=== PATIENT | female | born 1965 | race Caucasian/White ===

== ENCOUNTER 2021-07-03 14:20 | Inpatient (IN) | payer BC ==
[2021-07-03 16:11] LABS: Basophils % 0.4 % (0-1.3); Hematocrit 38.6 % (36.0-45.0); Lymphocytes % 10.5 % (15.3-44.8); MPV 9.3 fL (7.6-11.3); RBC Red Blood Cell Count 4.43 M/uL (3.86-4.86)
[2021-07-03] MEDS ORDERED: MORPHINE 4 MG/ML SYR ONE ×2 (16:11→18:04)
[2021-07-03] MEDS ORDERED: ONDANSETRON 4 MG/2 ML VIAL ONE ×2 (16:11→18:05)
[2021-07-03] MEDS ORDERED: NA CHLORIDE 0.9% 1,000 ML ONE ×2 (16:11→18:05)
[2021-07-03 16:17] LABS: ALT/SGPT 30 U/L (12-78); AST/SGOT 21 U/L (15-37); Alkaline Phosphatase 90 U/L (45-117); BUN Blood Urea Nitrogen 18 mg/dL (7-18); Bicarbonate 23 mmol/L (21-32); Bilirubin Direct 0.1 mg/dL (0-0.2); Bilirubin Total 0.4 mg/dL (0.2-1.0); Glucose Level 115 mg/dL (74-106); Magnesium 1.8 mg/dL (1.8-2.4); NT PRO-BNP 234 pg/mL (<125); Potassium 3.6 mmol/L (3.5-5.1); Protein, Total 7.9 g/dL (6.4-8.2); Sodium Level 139 mmol/L (136-145); Troponin (Emerg Dept Use Only) < 0.02 ng/mL (0.0-0.045)
[2021-07-03 16:19] LABS: Lipase > 30000 U/L (73-393)
[2021-07-03] MEDS ORDERED: FAMOTIDINE 20 MG/2 ML VIAL IV ONE (16:24)
--- NOTE | 2021-07-03 16:30 | RAD REPORT ---
EXAM DESCRIPTION: CT - Angio Aorta For Dissection - 07/03/2021 4:17 pm CLINICAL HISTORY: Chest pain radiating to the back. CHEST PAIN COMPARISON: No comparisons TECHNIQUE: CT angiography of the aorta was performed with MIPs. All CT scans are performed using dose optimization technique as appropriate and may include automated exposure control or mA/KV adjustment according to patient size. FINDINGS: A left aortic arch is present with normal branching pattern of the great vessels.No acute aortic finding is seen such as aneurysm, penetrating ulcer or dissection. The celiac axis, SMA, SHANNAN and renal arteries are patent. No evidence of pulmonary embolism. The lungs are clear. Moderate axial hiatal hernia. The liver demonstrates no focal mass or biliary dilatation.The spleen, adrenal glands and kidneys are within normal limits for arterial phase imaging.Mild inflammation is seen inferior to the tail of th e pancreas. No bowel obstruction, free fluid or abscess.Normal appendix.No pathologic enlarged lymphadenopathy id entified. No fracture or worrisome bone lesion seen.Old L1 anterior wedge compression deformity. IMPRESSION: No acute aortic finding is demonstrated. Mild inflammation inferior to the tail the pancreas is suspicious for acute pancreatitis. Recommend c orrelation with amylase and lipase levels.
--- NOTE | 2021-07-03 16:31 | RAD REPORT ---
EXAM DESCRIPTION: RAD - Chest Single View - 07/03/2021 4:19 pm CLINICAL HISTORY: CHEST PAIN Chest pain. COMPARISON: Angio Aorta For Dissection dated 07/03/2021 FINDINGS: Portable technique limits examination quality. The lungs are grossly clear. The heart is normal in size. No displaced fractures. IMPRESSION: No acute intrathoracic process suspected.
--- NOTE | 2021-07-03 17:10 | RAD REPORT ---
EXAM DESCRIPTION: US - Abdomen Exam Limited - 07/03/2021 4:59 pm CLINICAL HISTORY: EPIGASTRIC PAIN COMPARISON: Abdomen Exam Complete dated 11/10/2017 FINDINGS: The gallbladder demonstrates no gallstones. No pericholecystic fluid or gallbladder wall t hickening. The common bile duct is normal measuring 2 mm. The liver demonstrates no findings of intrahepatic biliary dilatation. IMPRESSION: Unremarkable examination.
--- NOTE | 2021-07-03 18:03 | ER ---
Nurse's Notes [facility] Name: Deisy Ruiz Age: 56 yrs Sex: Female : 1965 Arrival Date: 07/03/2021 Time: 14:22 Bed 25 Private MD: Diagnosis: Acute pancreatitis Presentation: 07/03 14:42 Chief complaint: Patient states: was outside working and all of a sudden had bad abd iw pain radiating to her back and up into her chest , started vomiting. Coronavirus screen: vomiting. Ebola Screen: Patient negative for fever greater than or equal to 101.5 degrees Fahrenheit, and additional compatible Ebola Virus Disease symptoms Patient denies exposure to infectious person. Patient denies travel to an Ebola-affected area in the 21 days before illness onset. No symptoms or risks identified at this time. Initial Sepsis Screen: Does the patient meet any 2 criteria? Does the patient have a suspected source of infection? No. Patient's initial sepsis screen is negative. Risk Assessment: Do you want to hurt yourself or someone else? Patient reports no desire to harm self or others. Onset of symptoms was July 03, 2021. 14:42 Method Of Arrival: Ambulatory iw 14:42 Acuity: KIOL 2 iw Historical: - Allergies: 14:43 NKA; iw - Home Meds: 14:43 citalopram 10 mg tab 1 tab once daily [Active]; iw - PMHx: 14:43 Anxiety; iw - PSHx: 14:43 None; iw - Immunization history:: Client reports receiving the 2nd dose of the Covid vaccine. - Social history:: Smoking status: Patient denies any tobacco usage or history of. Assessment: 15:26 Pain: Pain radiates to pelvis. Pain: Pain began 2-3 days ago. Cardiovascular: No ch5 deficits noted. 15:27 : Reports burning with urination, pain in Pelvis when moved. ch5 17:10 Reassessment: Patient states feeling better. Patient states symptoms have improved. ch5 Vital Signs: 14:42 BP 139 / 78; Pulse 56; Resp 16; Temp 96.7; Pulse Ox 100% on R/A; Weight 77.11 kg; iw Height 5 ft. 8 in. (172.72 cm); Pain 8/10; 15:29 BP 102 / 34; Pulse 79; Resp 18; Pulse Ox 92% on 3 lpm NC; ch5 17:10 BP 144 / 71; Pulse 54; Resp 18; Pulse Ox 100% on R/A; Pain 3/10; ch5 14:42 Body Mass Index 25.85 (77.11 kg, 172.72 cm) iw ED Course: 14:22 Patient arrived in ED. ds1 14:43 Triage completed. iw 14:44 Arm band placed on. iw 15:07 Erich Cross NP is PHCP. pm1 15:07 Sherman Andres MD is Attending Physician. pm1 15:25 Jamir Cavanaugh, BRIDGER is Primary Nurse. ch5 15:28 No apparent distress. ch5 15:28 No provider procedures requiring assistance completed. ch5 15:30 Patient has correct armband on for positive identification. Placed in gown. Bed in low ch5 position. Side rails up X2. 15:30 proof carrier on. Pulse ox on. NIBP on. Notified Nurse Practitioner and/or Physician ch5 Occupational Medicine Physician of EKG performed Labs sent. 15:30 Inserted saline lock: 20 gauge in right in left antecubital area, using aseptic ch5 technique. 15:30 Patient maintains SpO2 saturation greater than 95% on room air. Patient maintains SpO2 ch5 saturation greater than 95% on room air. 15:30 EKG done. ch5 15:52 CT Aorta for Dissection Sent. ld1 16:17 CT Aorta for Dissection In Process Unspecified. EDMS 16:19 XRAY Chest (1 view) In Process Unspecified. EDMS 16:36 Basic Metabolic Panel Sent. ch5 16:36 CBC with Diff Sent. ch5 16:36 LFT's Sent. ch5 16:36 Magnesium Sent. ch5 16:36 NT PRO-BNP Sent. ch5 16:36 Troponin (emerg Dept Use Only) Sent. ch5 16:37 Lipase Sent. ch5 16:59 US Abdomen Limited In Process Unspecified. EDMS 18:02 Francisco Veliz PA is Hospitalizing Provider. pm1 22:16 COVID-19 : Document "Date of Symptom Onset" if Symptomatic. Sent. ld1 Administered Medications: 15:59 Drug: Zofran (Ondansetron) 4 mg Route: IVP; Site: left antecubital; ch5 16:37 Follow up: Response: Vomiting decreased ch5 16:20 Drug: NS 0.9% 1000 ml Route: IV; Rate: 1000 ml; Site: left antecubital; ch5 18:43 Follow up: IV Status: Completed infusion ch5 16:20 Drug: Pepcid (famotidine) 20 mg Route: IVP; Site: left antecubital; ch5 16:37 Follow up: Response: Nausea is decreased ch5 16:21 Drug: morphine 4 mg Route: IVP; Site: left antecubital; ch5 16:37 Follow up: Response: Pain is decreased ch5 17:46 Drug: morphine 4 mg Route: IVP; Site: left antecubital; ch5 19:12 Follow up: Response: Nausea is decreased ch5 19:12 Follow up: Response: Marked relief of symptoms ch5 17:46 Drug: Zofran (Ondansetron) 4 mg Route: IVP; Site: left antecubital; ch5 22:16 Follow up: Response: No adverse reaction ld1 20:00 Drug: NS 0.9% 1000 ml Route: IV; Rate: 125 ml/hr; Site: left antecubital; ld1 22:17 Follow up: Response: No adverse reaction; IV Status: Completed infusion; IV Intake: ld1 1000ml Intake: 22:17 IV: 1000ml; Total: 1000ml. ld1 Outcome: 18:02 Decision to Hospitalize by Provider. pm1 07/04 09:29 Patient left the ED. eb Signatures: Dispatcher [employer] EDMI Sharon Nelson ds1 Zuri Saunders RN RN iw Erich Cross NP MINE BOSS pm1 Sarita Escudero Tonya Singh RN RN ld1 Jamir Cavanaugh RN RN ch5 Corrections: (The following items were deleted from the chart) 07/03 14:44 14:42 BP 175 / 140; Pulse 56bpm; Resp 16bpm; Pulse Ox 100% RA; Temp 96.7F; 77.11 kg; iw Height 5 ft. 8 in.; BMI: 25.8; Pain 8/10; iw 14:45 14:42 Pulse 56bpm; Resp 16bpm; Pulse Ox 100% RA; Temp 96.7F; 77.11 kg; Height 5 ft. 8 iw in.; BMI: 25.8; Pain 8/10; iw 15:59 15:28 Inserted saline lock: 20 gauge in right antecubital area, using aseptic ch5 technique. [facility] 59 15:28 Oxygen administration via nasal cannula \\T\\ 3L/min 5 [facility]
--- NOTE | 2021-07-03 18:03 | EDPHYS ---
Physician Documentation [facility] Name: Deisy Ruiz Age: 56 yrs Sex: Female : 1965 Arrival Date: 07/03/2021 Time: 14:22 Bed 25 Private MD: SARAH Physician Sherman Andres HPI: 07/03 15:26 This 56 yrs old Female presents to ER via Ambulatory with complaints of Chest pm1 Pain, Back Pain, Vomiting. 15:26 The patient or guardian reports chest pain that is located primarily in the substernal pm1 area, epigastric area. Onset: today, at 11:00. The pain radiates to lower back. Associated signs and symptoms: Pertinent positives: abdominal pain, nausea, shortness of breath, vomiting, Pertinent negatives: cough, dizziness, headache. The chest pain is described as burning, stabbing. Duration: The patient or guardian reports a single episode, that is still ongoing, and unchanged. Modifying factors: The symptoms are alleviated by nothing. the symptoms are aggravated by nothing. Severity of pain: in the emergency department the pain is unchanged. The patient has not experienced similar symptoms in the past. The patient has not recently seen a physician. 15:26 She presents to the ER with complaints of epigastric pain that started 11:00 today pm1 while she is working on the yard outside. Pain is described as burning and stabbing. Patient reports pain radiated to her lower back bilaterally and then radiates into her chest, sternal area. Associated symptoms of nausea and vomiting, shortness of breath.. Historical: - Allergies: 14:43 NKA; iw - Home Meds: 14:43 citalopram 10 mg tab 1 tab once daily [Active]; iw - PMHx: 14:43 Anxiety; iw - PSHx: 14:43 None; iw - Immunization history:: Client reports receiving the 2nd dose of the Covid vaccine. - Social history:: Smoking status: Patient denies any tobacco usage or history of. ROS: 15:26 Constitutional: Negative for fever, chills, and weight loss. pm1 15:26 : Negative for injury, bleeding, discharge, and swelling, MS/Extremity: Negative for injury and deformity, Skin: Negative for injury, rash, and discoloration, Neuro: Negative for headache, weakness, numbness, tingling, and seizure. 15:26 Cardiovascular: Positive for chest pain, Negative for palpitations. 15:26 Respiratory: Positive for shortness of breath, Negative for cough. 15:26 Abdomen/GI: Positive for abdominal pain, nausea, vomiting, of the epigastric area, Negative for diarrhea, constipation. 15:26 Back: Positive for of the left low back and right low back, pain. 15:26 All other systems are negative. Exam: 15:26 Constitutional: This is a well developed, well nourished patient who is awake, alert, pm1 and in no acute distress. Head/Face: Normocephalic, atraumatic. 15:26 Back: No spinal tenderness. No costovertebral tenderness. Full range of motion. Skin: Warm, dry with normal turgor. Normal color with no rashes, no lesions, and no evidence of cellulitis. MS/ Extremity: Pulses equal, no cyanosis. Neurovascular intact. Full, normal range of motion. 15:26 Eyes: Exam is negative for acute changes, Extraocular movements: intact throughout, Conjunctiva: no acute changes, no injection. 15:26 ENT: Exam is negative for acute changes, Mouth: Lips: normal, Oral mucosa: normal, pink and intact, moist. 15:26 Chest/axilla: Exam negative for acute changes, Inspection: normal, Palpation: is normal, no crepitus, no tenderness. 15:26 Cardiovascular: Rate: normal, Rhythm: regular, Pulses: no pulse deficits are appreciated. 15:26 Respiratory: Exam negative for acute changes, respiratory distress, shortness of breath, Breath sounds: are clear throughout. 15:26 Abdomen/GI: Inspection: abdomen appears normal, Palpation: soft, in all quadrants, moderate abdominal tenderness, in the epigastric area. 15:26 Neuro: Exam negative for acute changes, Orientation: is normal, Mentation: is normal, Motor: no acute changes, moves all fours. Vital Signs: 14:42 BP 139 / 78; Pulse 56; Resp 16; Temp 96.7; Pulse Ox 100% on R/A; Weight 77.11 kg; iw Height 5 ft. 8 in. (172.72 cm); Pain 8/10; 15:29 BP 102 / 34; Pulse 79; Resp 18; Pulse Ox 92% on 3 lpm NC; ch5 17:10 BP 144 / 71; Pulse 54; Resp 18; Pulse Ox 100% on R/A; Pain 3/10; ch5 14:42 Body Mass Index 25.85 (77.11 kg, 172.72 cm) iw MDM: 15:09 Patient medically screened. maria luz 15:57 Data reviewed: I have discussed the patient's presentation/case with the attending pm1 Emergency Department Physician; and as a result, I will order ultrasound to evaluate gallbladder and pepcid for pain. 17:39 ED course: P.O. intake 9 AM today, will get fasting lipid panel. Patient denies alcohol pm1 consumption in the past 5 years. 18:01 Data interpreted: Pulse oximetry: on room air is 100 %. Interpretation: normal. pm1 Counseling: I had a detailed discussion with the patient and/or guardian regarding: the historical points, exam findings, and any diagnostic results supporting the discharge/admit diagnosis, lab results, radiology results, the need for further work-up and treatment in the hospital. 18:25 Physician consultation: Francisco TO regarding admission, patient's condition, and pm1 will see patient in ED. 07/03 15:16 Order name: Basic Metabolic Panel pm1 07/03 15:16 Order name: CBC with Diff pm1 07/03 15:16 Order name: LFT's pm1 07/03 15:16 Order name: Magnesium pm1 07/03 15:16 Order name: NT PRO-BNP pm1 07/03 15:16 Order name: PT-INR; Complete Time: 16:30 pm1 07/03 15:16 Order name: Troponin (emerg Dept Use Only) pm1 07/03 15:16 Order name: Lipase pm1 07/03 15:17 Order name: Basic Metabolic Panel; Complete Time: 16:30 EDMS 07/03 15:17 Order name: CBC with Automated Diff; Complete Time: 16:30 EDMS 07/03 15:17 Order name: Liver (Hepatic) Function; Complete Time: 16:30 EDMS 07/03 15:17 Order name: Magnesium; Complete Time: 16:30 EDMS 07/03 15:17 Order name: NT PRO-BNP; Complete Time: 16:30 EDMS 07/03 15:17 Order name: Troponin (Emerg Dept Use Only); Complete Time: 16:30 EDMS 07/03 15:16 Order name: XRAY Chest (1 view); Complete Time: 16:32 pm1 07/03 15:17 Order name: Lipase; Complete Time: 16:30 EDMS 07/03 17:38 Order name: Lipid Profile; Complete Time: 19:17 pm1 07/03 18:23 Order name: COVID-19 : Document "Date of Symptom Onset" if Symptomatic. pm1 07/03 20:00 Order name: SARS-COV-2 RT PCR; Complete Time: 20:06 EDMS 07/03 22:19 Order name: Lactate; Complete Time: 01:08 EDMS 07/03 22:21 Order name: Lactic Dehydrogenase; Complete Time: 01:08 EDMS 07/03 22:21 Order name: C-Reactive Protein; Complete Time: 01:08 EDMS 07/03 22:54 Order name: T4 Free; Complete Time: 01:08 EDMS 07/03 22:54 Order name: Amylase; Complete Time: 01:08 EDMS 07/03 22:54 Order name: Thyroid Stimulating Hormone; Complete Time: 01:08 EDMS 07/04 05:15 Order name: CBC with Automated Diff EDMS 07/04 05:25 Order name: Comprehensive Metabolic Panel EDMS 07/04 05:25 Order name: Phosphorus EDMS 07/04 05:25 Order name: Magnesium EDMS 07/04 05:25 Order name: Lipase EDMS 07/03 15:16 Order name: EKG; Complete Time: 15:17 pm07/03 15:16 Order name: Cardiac monitoring; Complete Time: 16:36 pm07/03 15:16 Order name: EKG - Nurse/Tech; Complete Time: 15:57 pm07/03 15:16 Order name: IV Saline Lock; Complete Time: 15:46 pm07/03 15:16 Order name: Labs collected and sent; Complete Time: 15:46 pm07/03 15:16 Order name: O2 Per Protocol; Complete Time: 15:57 pm07/03 15:16 Order name: O2 Sat Monitoring; Complete Time: 15:57 pm07/03 15:21 Order name: CT Aorta for Dissection; Complete Time: 16:32 pm07/03 15:57 Order name: US Abdomen Limited; Complete Time: 17:11 pm07/03 16:33 Order name: NPO; Complete Time: 16:34 pm1 Administered Medications: 15:59 Drug: Zofran (Ondansetron) 4 mg Route: IVP; Site: left antecubital; ch5 16:37 Follow up: Response: Vomiting decreased ch5 16:20 Drug: NS 0.9% 1000 ml Route: IV; Rate: 1000 ml; Site: left antecubital; ch5 18:43 Follow up: IV Status: Completed infusion ch5 16:20 Drug: Pepcid (famotidine) 20 mg Route: IVP; Site: left antecubital; ch5 16:37 Follow up: Response: Nausea is decreased ch5 16:21 Drug: morphine 4 mg Route: IVP; Site: left antecubital; ch5 16:37 Follow up: Response: Pain is decreased ch5 17:46 Drug: morphine 4 mg Route: IVP; Site: left antecubital; ch5 19:12 Follow up: Response: Nausea is decreased ch5 19:12 Follow up: Response: Marked relief of symptoms ch5 17:46 Drug: Zofran (Ondansetron) 4 mg Route: IVP; Site: left antecubital; ch5 22:16 Follow up: Response: No adverse reaction ld1 20:00 Drug: NS 0.9% 1000 ml Route: IV; Rate: 125 ml/hr; Site: left antecubital; ld1 22:17 Follow up: Response: No adverse reaction; IV Status: Completed infusion; IV Intake: ld1 1000ml Disposition: 07/05 07:45 Co-signature as Attending Physician, Sherman Andres MD I agree with the assessment and maria luz plan of care. Disposition Summary: 07/03/21 18:02 Hospitalization Ordered Hospitalization Status: Inpatient Admission pm1 Provider: Francisco Veliz pm1 Condition: Stable pm1 Problem: new pm1 Symptoms: have improved pm1 Bed/Room Type: Standard pm1 Location: Telemetry/MedSurg (Inpatient)(07/04/21 07:52) eb Room Assignment: [facility](07/04/21 07:52) eb Diagnosis - Acute pancreatitis pm1 Discharge Instructions: - Discharge Summary Sheet ch5 Forms: - Medication Reconciliation Form pm1 - SBAR form ch5 Signatures: Dispatcher [employer] EDGifty Clemons RN RN mw Anderson, Corey, MD MD cha Williams, Irene RN RN Erich Pineda, DAVONTE RATE QUOTING OPERATOR pm1 Sarita Escudero Lauren, RN RN ld1 Jamir Cavanaugh RN RN ch5 Corrections: (The following items were deleted from the chart) 07/03 20:57 18:02 Telemetry/MedSurg (Inpatient) [facility] 18:02 [facility] 07/04 07:52 07/03 20:57 [facility] 07/04 07:52 07/03 20:57 [facility]
--- NOTE | 2021-07-03 20:52 | P.HP ---
Certification for Inpatient Patient admitted to: Inpatient With expected LOS: <2 Midnights Patient will require the following post-hospital care: None Practitioner: I am a practitioner with admitting privileges, knowledge of patient current condition, hospital course, and medical plan of care. Services: Services provided to patient in accordance with Admission requirements found in Title 42 Section 412.3 of the Code of Federal Regulations Patient History Date of Service: 07/03/21 Primary Care Provider: Ronan Reason for admission: pancreatitis History of Present Illness: Ms. Ruiz is a 56 yo F with anxiety who presents with severe burning, stabbing epigastric abdominal pain beginning at 11am today. She has never had pain like this before. Pain radiated to her chest and to her back. She also had nausea, vomiting, and shortness of breath. Pain is exacerbated with movement. Improved with morrphine. Prior to onset, she went for a walk, worked in her flower beds, and ate some yogurt. Denies alcohol use, no gallstones, lipid panel wnl, no insect bites. Only medication she takes is citalopram. Lipase >30,000. CT scan shows mild inflammation inferior to the taile the pancreas suspicious for acute pancreatitis. Allergies No Known Allergies Allergy (Unverified 01/21/17 18:49) - Past Medical/Surgical History Has patient received pneumonia vaccine in the past: No Diabetic: No -: anxiety -: gluten intolerance Past Surgical History: Patient denies surgical history - Family History Family History: Reviewed- Non-Contributory (patient is adopted) - Social History Smoking Status: Never smoker Alcohol use: No CD- Drugs: No Caffeine use: Yes Place of Residence: Home Review of Systems 10-point ROS is otherwise unremarkable Respiratory: Shortness of Breath Cardiovascular: Chest Pain Gastrointestinal: Nausea, Vomiting, Abdominal Pain Musculoskeletal: Back Pain Physical Examination - Physical Exam General: Alert, In no apparent distress HEENT: Atraumatic, PERRLA, Mucous membr. moist/pink, EOMI, Sclerae nonicteric Neck: Supple, 2+ carotid pulse no bruit, No LAD, Without JVD or thyroid abnormality Respiratory: Clear to auscultation bilaterally, Normal air movement Cardiovascular: Regular rate/rhythm, Normal S1 S2 Gastrointestinal: Normal bowel sounds, Soft and benign, Non-distended, No ascites, No masses, No rebound, No guarding, Tenderness Musculoskeletal: No tenderness Integumentary: No rashes Neurological: Normal gait, Normal speech, Normal strength at 5/5 x4 extr, Normal tone, Normal affect Lymphatics: No axilla or inguinal lymphadenopathy - Studies Laboratory Data (last 24 hrs) 07/03/21 18:00: Triglycerides 59, Cholesterol 202 H, HDL Cholesterol 66 H, Cholesterol/HDL Ratio 3.06 07/03/21 14:54: PT 11.5, INR 1.00 07/03/21 14:54: WBC 9.50, Hgb 13.1, Hct 38.6, Plt Count 203 07/03/21 14:54: Sodium 139, Potassium 3.6, BUN 18, Creatinine 0.81, Glucose 115 H, Magnesium 1.8, Total Bilirubin 0.4, AST 21, ALT 30, Alkaline Phosphatase 90, Lipase > 91992 H Assessment and Plan - Problems (Diagnosis) (1) Acute pancreatitis Current Visit: Yes Status: Acute Qualifiers: Pancreatitis type: idiopathic Acute pancreatitis complication: no infection or necrosis Qualified Code(s): K85.00 - Idiopathic acute pancreatitis without necrosis or infection (2) Anxiety Current Visit: Yes Status: Chronic - Plan continue IVF hydration, pain management as needed, antiemetics lactate, amylase, CRP, LDH pending repeat labs and lipase in the AM NPO O2 as needed DVT ppx reconcile and continue home medications Discharge Plan: Home Plan to discharge in: 48 Hours - Advance Directives Does patient have a Living Will: No Does patient have a Durable POA for Healthcare: No - Code Status/Comfort Care Code Status Assessed: Yes (full code) Critical Care: No Time Spent Managing Pts Care (In Minutes): 70
[2021-07-03] MEDS ORDERED: ACETAMINOPHEN 500 MG TAB PO PRN (21:10)
[2021-07-03] MEDS: Ringers Lactate 1,000 ML IV SCH (21:10)
[2021-07-03] MEDS: MORPHINE 4 MG/ML SYR IV PRN (21:25)
[2021-07-03] MEDS: ONDANSETRON 4 MG/2 ML VIAL IV PRN (21:25)
[2021-07-03 21:29] VITALS: BMI 29.9
[2021-07-03 22:20] LABS: C-Reactive Protein 9.34 mg/L (<3.00)
[2021-07-03 22:53] LABS: Amylase > 1300 U/L (25-115)
[2021-07-04] MEDS ORDERED: ONDANSETRON 4 MG/2 ML VIAL ONE (01:55)
[2021-07-04] MEDS ORDERED: MORPHINE 4 MG/ML SYR ONE (01:55)
[2021-07-04] MEDS: ONDANSETRON 4 MG/2 ML VIAL IV PRN ×2 (02:30→21:38)
[2021-07-04] MEDS: MORPHINE 4 MG/ML SYR IV PRN ×2 (02:30→21:39)
[2021-07-04] MEDS: Ringers Lactate 1,000 ML IV SCH ×2 (03:50→12:44)
[2021-07-04 04:33] LABS: Absolute Lymphocytes (CBC) 1.4 K/uL (0.7-4.9); Basophils % 0.3 % (0-1.3); Hematocrit 35.9 % (36.0-45.0); Lymphocytes % 14.3 % (15.3-44.8); MPV 9.5 fL (7.6-11.3); RBC Red Blood Cell Count 4.04 M/uL (3.86-4.86)
[2021-07-04 05:24] LABS: Albumin 3.5 g/dL (3.4-5.0); Bilirubin Total 0.4 mg/dL (0.2-1.0); Magnesium 1.9 mg/dL (1.8-2.4); Phosphorus 4.2 mg/dL (2.5-4.9); Potassium 4.3 mmol/L (3.5-5.1); Protein, Total 7.2 g/dL (6.4-8.2)
[2021-07-04] MEDS ORDERED: FENTANYL CITR 100 MCG/2 ML IV ONE (07:01)
[2021-07-04] MEDS ORDERED: FENTANYL CITR 100 MCG/2 ML ONE (07:23)
[2021-07-04] MEDS: ENOXAPARIN 40 MG/0.4 ML SQ SCH (08:00)
[2021-07-04] MEDS ORDERED: ENOXAPARIN 40 MG/0.4 ML SQ ONE (08:17)
[2021-07-04] MEDS ORDERED: TRAMADOL HCL 50 MG TAB PO PRN (09:16)
--- NOTE | 2021-07-04 09:18 | P.PN ---
Subjective Date of Service: 07/04/21 Primary Care Provider: Ronan Chief Complaint: pancreatitis Subjective: Improving Review of Systems 10-point ROS is otherwise unremarkable Gastrointestinal: Abdominal Pain Physical Examination - Vital Signs Temperature: 99.0 F Blood Pressure: 103/65 Pulse: 63 Respirations: 20 Pulse Ox (%): 96 - Physical Exam General: Alert, In no apparent distress HEENT: Atraumatic, PERRLA, EOMI Neck: Supple, JVD not distended Respiratory: Clear to auscultation bilaterally, Normal air movement Cardiovascular: Regular rate/rhythm, Normal S1 S2 Gastrointestinal: Normal bowel sounds, No tenderness Musculoskeletal: No tenderness Integumentary: No rashes Neurological: Normal speech, Normal tone, Normal affect Lymphatics: No axilla or inguinal lymphadenopathy - Studies Laboratory Data (last 24 hrs) 07/03/21 18:00: Triglycerides 59, Cholesterol 202 H, HDL Cholesterol 66 H, Cholesterol/HDL Ratio 3.06 07/03/21 14:54: PT 11.5, INR 1.00 07/03/21 14:54: WBC 9.50, Hgb 13.1, Hct 38.6, Plt Count 203 07/03/21 14:54: Sodium 139, Potassium 3.6, BUN 18, Creatinine 0.81, Glucose 115 H, Magnesium 1.8, Total Bilirubin 0.4, AST 21, ALT 30, Alkaline Phosphatase 90, Lipase > 94215 H Assessment & Plan - Problems (Diagnosis) (1) Acute pancreatitis Current Visit: Yes Status: Acute Plan: Most likely gallstone pancreatitis. The patient has improving enzymes. Will start her on a clear liquid diet at lunch time. Will see how she does. Qualifiers: Pancreatitis type: biliary Acute pancreatitis complication: no infection or necrosis Qualified Code(s): K85.10 - Biliary acute pancreatitis without necrosis or infection Discharge Plan: Home - Code Status/Comfort Care Code Status Assessed: No Physician Review: Patient Assessed, Agree with Above Assessment and Plan Critical Care: No Time Spent Managing Pts Care (In Minutes): 25
[2021-07-04] MEDS: ACETAMINOPHEN 500 MG TAB PO SCH ×3 (09:51→22:00)
[2021-07-05] MEDS: ACETAMINOPHEN 500 MG TAB PO SCH ×2 (04:00→10:06)
[2021-07-05] MEDS: Ringers Lactate 1,000 ML IV SCH (04:00)
[2021-07-05 09:32] VITALS: BP 140/74; TEMP 98.2
--- NOTE | 2021-07-05 09:56 | P.DS ---
Admission Date: 07/03/21 Discharge Date: 07/05/21 Primary Care Provider: Ronan Disposition: ROUTINE DISCHARGE Discharge Condition: FAIR Reason for Admission: pancreatitis - Problems (1) Acute pancreatitis Current Visit: Yes Status: Acute Qualifiers: Pancreatitis type: biliary Acute pancreatitis complication: no infection or necrosis Qualified Code(s): K85.10 - Biliary acute pancreatitis without necrosis or infection Brief History of Present Illness: Patient admitted for pancreatitis. She denies drinking. She elevated lipase indicating pancreatitis. She had a negative ct scan. She is not able to tolerate food. Was admitted for pain management and pancreatitis. Hospital Course: Patient is tolerating liquid diet. She is doing well. Will discharge her home. She can follow up with her PCP Dr. Schmidt. Have discussed at length how to advance her diet. Clear to full liquid. then soft and then full diet. If with each step if she has pain she should decrease back to the previous step Vital Signs/Physical Exam: Temp Pulse Resp BP Pulse Ox 98.2 F 71 18 140/74 95 07/05/21 07:50 07/05/21 07:50 07/05/21 07:50 07/05/21 07:50 07/05/21 04:00 Laboratory Data at Discharge: WBC 9.80 K/uL (4.3-10.9) 07/04/21 03:59 Hgb 12.1 g/dL (12.0-15.0) 07/04/21 03:59 Hct 35.9 % (36.0-45.0) L 07/04/21 03:59 Plt Count 198 K/uL (152-406) 07/04/21 03:59 PT 11.5 SECONDS (9.5-12.5) 07/03/21 14:54 INR 1.00 07/03/21 14:54 Sodium 139 mmol/L (136-145) 07/04/21 03:59 Potassium 4.3 mmol/L (3.5-5.1) 07/04/21 03:59 BUN 12 mg/dL (7-18) 07/04/21 03:59 Creatinine 0.68 mg/dL (0.55-1.3) 07/04/21 03:59 Glucose 94 mg/dL (74-106) 07/04/21 03:59 Phosphorus 4.2 mg/dL (2.5-4.9) 07/04/21 03:59 Magnesium 1.9 mg/dL (1.8-2.4) 07/04/21 03:59 Total Bilirubin 0.4 mg/dL (0.2-1.0) 07/04/21 03:59 AST 19 U/L (15-37) 07/04/21 03:59 ALT 25 U/L (12-78) 07/04/21 03:59 Alkaline Phosphatase 76 U/L (45-117) 07/04/21 03:59 Triglycerides 59 mg/dL (<150) 07/03/21 18:00 Cholesterol 202 mg/dL (<200) H 07/03/21 18:00 HDL Cholesterol 66 mg/dL (40-60) H 07/03/21 18:00 Cholesterol/HDL Ratio 3.06 07/03/21 18:00 Amylase > 1300 U/L (25-115) H* 07/03/21 21:54 Lipase 7632 U/L (73-393) H 07/04/21 03:59 Home Medications: Citalopram [Celexa] 20 mg PO DAILY 07/04/21 Followup: Jolynn Ferraro MD [Primary Care Provider] -
[2021-07-05] MEDS: ENOXAPARIN 40 MG/0.4 ML SQ SCH (10:07)
[2021-07-05 11:46] VITALS: O2SAT 95
== END 2021-07-05 10:44 | disposition home or self-care (01) | DRG 440 ==
LOC: ER 14:20 → ERHOLD 18:50 → 2ND 07-04 08:03
PROVIDERS: ADMIT Internal Medicine; ATTEND Internal Medicine
DX: K85.10 Biliary acute pancreatitis without necrosis or infection (principal); F41.9 Anxiety disorder, unspecified; Z20.822 Contact with and (suspected) exposure to COVID-19
CPT/HCPCS: 36415; 71045; 71275; 74175; 76705; 80048; 80053; 80061; 80076; 82150; 82565; 83605; 83615; 83690; 83735; 83880; 84100; 84439; 84443; 84484; 85025; 85610; 86140; 93005; 94760; 96361; 96374; 96375; 99285; J1650; J2405; J3010; J7030; J7120; Q9967; U0003